=== PATIENT | female | born 1955 | race Caucasian/White ===

== ENCOUNTER 2016-11-24 17:26 | Emergency (ER) | payer OTHER, SELFPAY ==
[2016-11-24 19:26] LABS: HEMOGLOBIN 14.3 gm/dl (12.3-15.3); RED BLOOD COUNT 4.98 M/UL (4.00-5.10); WHITE BLOOD COUNT 8.3 K/UL (4.5-11.0)
[2016-11-24 19:53] LABS: BUN/CREATININE RATIO 15 (0-10)
== END 2016-11-25 00:25 | disposition home or self-care (01) ==
LOC: ER1 17:26
PROVIDERS: Family Medicine
DX: R07.89 Other chest pain (principal); R06.02 Shortness of breath; Z79.82 Long term (current) use of aspirin; Z79.899 Other long term (current) drug therapy; Z95.0 Presence of cardiac pacemaker; Z88.1 Allergy status to other antibiotic agents
CPT/HCPCS: 36415; 71010; 80053; 82550; 82553; 83874; 83880; 84484; 85025; 93005; 99285

== ENCOUNTER 2017-01-19 14:13 | Emergency (ER) | payer OTHER ==
[2017-01-19 15:59] LABS: HEMOGLOBIN 14.1 gm/dl (12.3-15.3); RED BLOOD COUNT 4.85 M/UL (4.00-5.10); WHITE BLOOD COUNT 7.6 K/UL (4.5-11.0)
[2017-01-19 16:17] LABS: BUN/CREATININE RATIO 14 (0-10)
== END 2017-01-19 19:37 | disposition home or self-care (01) ==
LOC: ER1 14:13
PROVIDERS: Student in an Organized Health Care Education/Training Program
DX: R30.0 Dysuria (principal); R33.9 Retention of urine, unspecified; R10.2 Pelvic and perineal pain; I10 Essential (primary) hypertension; Z95.0 Presence of cardiac pacemaker
CPT/HCPCS: 36415; 80053; 81001; 83690; 85025; 87086; 96360; 96361; 99284; J2270; J2405

== ENCOUNTER → 2020-11-08 | Outpatient (CLI) | payer OTHER, SELFPAY ==
[~2020-11-08] MED LIST: AMLODIPINE BESYL5 MG PO; BACTRIM DS TAB1 EACH PO; CALCIUM500 MG PO; CETIRIZINE HCL10 MG PO; COREG 25MG TAB25 MG PO; ECOTRIN81 MG PO; FLONASE 0.05% N16 GM; K-DUR TAB 20 M20 MEQ PO; KEFLEX CAP 500500 MG PO; LASIX20 MG PO; LIPITOR TAB 1010 MG PO; OMNICEF 300 MG300 MG PO; PROTONIX40 MG PO; PROVENTIL HFA6.7 GM INH; PYRIDIUM100 MG PO; TESSALON PERLE100 MG PO; TOPAMAX100 MG PO; ULTRAM50 MG PO; VENTOLIN HFA 66.7 GM INH; VITAMIN C 500500 MG PO; VITAMIN D32000 UNI1 PO; ZANTAC150 MG PO; ZOFRAN ODT 4 MG4 MG SL
[2020-11-08 10:29] LABS: HEMOGLOBIN 12.7 gm/dl (12.3-15.3); RED BLOOD COUNT 4.42 M/UL (4.00-5.10); WHITE BLOOD COUNT 4.5 K/UL (4.5-11.0)
[2020-11-08 10:49] LABS: BUN/CREATININE RATIO 13 (0-10)
[2020-11-09 10:12] LABS: HCV ANTIBODY <0.1 (0.0-0.9); VITAMIN D, 25-HYDROXY 52.7 ng/mL (30.0-100.0)
== END ==
LOC: LAB 09:45
PROVIDERS: Internal Medicine
DX: E78.5 Hyperlipidemia, unspecified (principal); E55.9 Vitamin D deficiency, unspecified; E53.8 Deficiency of other specified B group vitamins; Z11.59 Encounter for screening for other viral diseases
CPT/HCPCS: 36415; 80048; 80061; 80076; 82607; 84443; 85025; 86803

== ENCOUNTER → 2021-04-08 | Outpatient (CLI) | payer OTHER ==
[~2021-04-08] MED LIST changes: -CETIRIZINE HCL10 MG PO; +FAMOTIDINE20 MG PO; -LIPITOR TAB 1010 MG PO; +LIPITOR TAB 2020 MG PO; +TRIMETHOPRIM100 MG PO; +VITAMIN B-121000 MCG PO; +XYZAL5 MG PO
== END ==
LOC: KOH-I 11:26
DX: M25.512 Pain in left shoulder (principal)
CPT/HCPCS: 73030

== ENCOUNTER → 2021-04-14 | Outpatient (CLI) | payer OTHER ==
[~2021-04-14] MED LIST changes: +CETIRIZINE HCL10 MG PO; -FAMOTIDINE20 MG PO; +LIPITOR TAB 1010 MG PO; -LIPITOR TAB 2020 MG PO; -TRIMETHOPRIM100 MG PO; -VITAMIN B-121000 MCG PO; -XYZAL5 MG PO
== END ==
LOC: KOH-I 13:30
DX: M25.512 Pain in left shoulder (principal); M25.612 Stiffness of left shoulder, not elsewhere classified; R29.898 Other symptoms and signs involving the musculoskeletal system; M85.80 Other specified disorders of bone density and structure, unspecified site; Z96.21 Cochlear implant status
CPT/HCPCS: 73200

== ENCOUNTER 2021-05-06 09:50 | Inpatient (IN) | payer OTHER ==
[~2021-05-06] VITALS: Ht 172.7 cm; Wt 89.8 kg
[~2021-05-06 09:50] MED LIST changes: -AMLODIPINE BESYL5 MG PO; -CETIRIZINE HCL10 MG PO; -COREG 25MG TAB25 MG PO; -LASIX20 MG PO; -LIPITOR TAB 1010 MG PO; +LIPITOR TAB 2020 MG PO; -TOPAMAX100 MG PO; -VITAMIN C 500500 MG PO
[2021-05-06] MEDS ORDERED: VITAMIN C 500500 MG PO (10:50)
[2021-05-06] MEDS ORDERED: XYZAL5 MG PO (10:50)
[2021-05-06] MEDS ORDERED: LASIX20 MG PO (10:52)
[2021-05-06] MEDS ORDERED: COREG 25MG TAB25 MG PO (10:52)
[2021-05-06] MEDS ORDERED: AMLODIPINE BESYL5 MG PO (10:54)
[2021-05-06] MEDS ORDERED: TOPAMAX100 MG PO (10:55)
[2021-05-06 12:10] LABS: HEMOGLOBIN 12.8 gm/dl (12.3-15.3); RED BLOOD COUNT 4.56 M/UL (4.00-5.10); WHITE BLOOD COUNT 3.6 K/UL (4.5-11.0)
[2021-05-06 12:25] LABS: BUN/CREATININE RATIO 22 (0-10)
[2021-05-06] MEDS ORDERED: TRIMETHOPRIM100 MG PO (18:41)
[2021-05-06] MEDS ORDERED: FAMOTIDINE20 MG PO (18:41)
[2021-05-06] MEDS ORDERED: VITAMIN B-121000 MCG PO (18:42)
[2021-05-07 04:19] LABS: HEMOGLOBIN 12.8 gm/dl (12.3-15.3); RED BLOOD COUNT 4.54 M/UL (4.00-5.10)
[2021-05-07 04:20] LABS: WHITE BLOOD COUNT 2.3 K/UL (4.5-11.0)
[2021-05-07 04:34] LABS: BUN/CREATININE RATIO 31 (0-10)
[2021-05-08 09:19] LABS: HEMOGLOBIN 13.4 gm/dl (12.3-15.3); RED BLOOD COUNT 4.77 M/UL (4.00-5.10)
[2021-05-08 09:24] LABS: WHITE BLOOD COUNT 7.9 K/UL (4.5-11.0)
[2021-05-08 09:39] LABS: BUN/CREATININE RATIO 30 (0-10)
--- NOTE | 2021-05-09 06:28 | NUR ---
PATIENT NEEDS PULSE OX CORD
[2021-05-09 07:17] LABS: RED BLOOD COUNT 4.64 M/UL (4.00-5.10); WHITE BLOOD COUNT 9.5 K/UL (4.5-11.0)
[2021-05-09 07:46] LABS: BUN/CREATININE RATIO 27 (0-10)
[2021-05-10 03:34] LABS: HEMOGLOBIN 12.2 gm/dl (12.3-15.3); RED BLOOD COUNT 4.37 M/UL (4.00-5.10); WHITE BLOOD COUNT 7.2 K/UL (4.5-11.0)
[2021-05-10 03:46] LABS: BUN/CREATININE RATIO 32 (0-10)
[2021-05-11 03:50] LABS: HEMOGLOBIN 13.3 gm/dl (12.3-15.3); RED BLOOD COUNT 4.74 M/UL (4.00-5.10)
[2021-05-11 03:52] LABS: WHITE BLOOD COUNT 9.6 K/UL (4.5-11.0)
[2021-05-11 04:14] LABS: BUN/CREATININE RATIO 32 (0-10)
--- NOTE | 2021-05-11 05:16 | NUR ---
RECIEVED A CALL FROM TELE THAT PT WAS SHOWING VTACH OR VFIB, BUT IT WAS INCONCLUSIVE ON WHETHER IT WAS VFIB OR ARTIFACT. TWO RNS ENTERED THE ROOM. PT WAS SLUMPED OVER IN THE BED ON THE BIPAP. UNRESPONSIVE TO PAINFUL STIMULI. I WAS UNABLE TO FIND A PULSE, AND THE MONITOR SHOWED VFIB. PT WAS LOWERED AND COMPRESSIONS WERE STARTED AROUND 0305. BEDSIDE GLUCOSE WAS TAKEN, 132. CODE BLUE BUTTON WAS PRESSED BY LAKSHMI SANCHEZ. PT WAS PLACED ON THE CPR BOARD AND COMPRESSIONS WERE CONTIUNED. EPI PUSHED AT 0307, FIRST SHOCK DELIVERED AT 0308. COMPRESSIONS WERE CONTINUED, PT WAS STILL PULSELESS. EPI AT 0310, FOLLOWED BY 100 MG LIDOCAINE. PULSE CHECK AT 0312 SHOWED VFIB, SHOCK ADMINISTERED. COMPRESSIONS CONTINUED, EPI AT 0313, FOLLOWED BY 40MG OF VASOPRESSIN. 300 OF AMIODORONE GIVEN AT 0313, AND ONE AMP OF BICARB. SHOCKED AT 0315, PULSE CHECK SHOWED VFIB. 150 MG OF AMIO GIVE. EPI AT 0316. PULSE WAS OBTAINED, MONITOR SHOWED HR 95, B/P 134/101, 83%, VENTED AND BAGGED. PT INTUBATED AT 0315, 7.5 ETT, 23 AT THE LIP. THE AMIODORONE DRIP WAS STARTED AT 0321. ATTEMPTED TO OBTAIN ANOTHER BEDSIDE GLUCOSE AND ABG, UNSUCCESSFUL. 032, PT WAS BRADYCARDIC, HR 35, ATROPINE GIVEN. LOST PULSE AGAIN AT 0328, EPI GIVEN AND COMPRESSIONS STARTED BACK. PEA AT 0331, EPI GIVEN. PEA AT 0334, EPI GIVEN. PULSE OBTAINED AT 0338, B/P 59/39, LEVO STARTED. PT MOVED TO ICU AFTER FAMILY AND DR. WALKER WERE BOTH CONTACTED. FOLLOWED PT TO ICU. ONCE IN THE ICU, PT BEGAN TO ANUJ DOWN AGAIN. DR. العراقي HAD TALKED TO THE FAMILY AND THEY HAD AGREED TO MAKE THE PT A DNR. ONCE DULCE MARIA GOT TO THE ICU AND SAW THE PT, HE ALERTED US THAT THE PT WAS NOW A DNR PER THE AND SON.
== END 2021-05-11 04:03 | disposition expired | DRG 208 ==
LOC: ER1 09:50 → M/S 15:04 → CDU 15:04 → PROG CARE 15:04 → M/S 05-07 19:55 → PROG CARE 05-09 20:04 → CCU 05-11 03:50
PROVIDERS: Internal Medicine; Physician Assistant; ADMIT Internal Medicine
DX: U07.1 COVID-19 (principal); J12.82 Pneumonia due to coronavirus disease 2019; J80 Acute respiratory distress syndrome; J15.9 Unspecified bacterial pneumonia; J93.83 Other pneumothorax; Z68.41 Body mass index [BMI] 40.0-44.9, adult; I46.8 Cardiac arrest due to other underlying condition; K21.9 Gastro-esophageal reflux disease without esophagitis; I25.10 Atherosclerotic heart disease of native coronary artery without angina pectoris; I95.9 Hypotension, unspecified; I44.7 Left bundle-branch block, unspecified; H91.90 Unspecified hearing loss, unspecified ear; D69.6 Thrombocytopenia, unspecified; E66.9 Obesity, unspecified; Z96.1 Presence of intraocular lens; I49.01 Ventricular fibrillation; I10 Essential (primary) hypertension; Z88.1 Allergy status to other antibiotic agents; Z95.0 Presence of cardiac pacemaker; Z90.710 Acquired absence of both cervix and uterus
CPT/HCPCS: 36415; 36600; 71045; 80048; 80053; 80076; 82550; 82553; 82728; 82803; 82962; 83605; 83735; 83874; 84484; 85025; 85027; 85379; 86140; 86900; 86901; 86927; 87040; 93005; 94660; 94760; 96374; 99285; J0171; J0282; J0456; J0461; J1100; J1650; J2001; J2185; J7030; J7070; U0002